=== PATIENT | male | born 1965 | race Two or more races ===

== ENCOUNTER 2017-07-10 11:03 | Emergency (ER) | payer SELFPAY ==
[~2017-07-10] VITALS: Ht 175.3 cm; Wt 76.1 kg
[~2017-07-10 11:03] MED LIST: ASPI-664 PO; GABA-526 PO; HYDR12.53 PO; LISI10TA2 PO; MTF1000T PO; SIMV20TA2 PO
[2017-07-10 11:07] VITALS: Ht 175.3 cm; Wt 76.1 kg
== END 2017-07-10 11:10 | disposition left against medical advice (07) ==
LOC: FTE 11:03
DX: Z53.21 Procedure and treatment not carried out due to patient leaving prior to being seen by health care provider (principal)